=== PATIENT | female | born 1930 | race Caucasian/White ===

== ENCOUNTER 2017-05-30 14:23 | Inpatient (IN) | payer MEDICARE ==
[~2017-05-30] VITALS: Ht 160 cm; Wt 72.9 kg
[~2017-05-30 14:23] MED LIST: ACID1GRA4 PO; ALEN70TA47 PO; APIX5TAB PO; ASPI500T65 PO; FENT-77 TD; HYDR-4064 PO; HYDR-4068 PO; LISI40TA4 PO; LOPE2CAP PO; METH500T PO; METH500T6 PO; OXYGEN NASAL; PRAM0.129 PO; SUCR1TAB2 PO; TAMS0.4C32 PO; ZOLP10TA2 PO; ZOLP10TA6 PO
[2017-05-30 14:30] VITALS: BP 138/76
[2017-05-30] MEDS ORDERED: CEFTRIAXONE SODIUM 1 GM ONE (14:56)
[2017-05-30] MEDS ORDERED: AZITHROMYCIN 500MG+NS 250ML 250 ML IV ONE (14:56)
[2017-05-30] MEDS ORDERED: METHYLPREDNISOLONE SOD SUCC 40MG/ML 1ML ONE ×2 (14:56→15:09)
[2017-05-30] MEDS ORDERED: IPRATROPIUM/ALBUTEROL SULFATE 3 ML SOLUTION IH ONE (14:58)
[2017-05-30 15:19] LABS: BASOPHILS % (AUTO) 0.6 % (0.0-5.0); EOSINOPHILS % (AUTO) 1.6 % (0.0-8.0); HEMATOCRIT 23.7 % (36-48); LYMPHOCYTES % (AUTO) 18.5 % (21.0-51.0); MEAN CORPUSCULAR HEMOGLOBIN 26.5 pg (27.0-33.0); MEAN CORPUSCULAR HGB CONC 31.9 g/dL (32.0-36.0); MEAN CORPUSCULAR VOLUME 82.9 fL (79-99); MONOCYTES % (AUTO) 8.3 % (3.0-13.0); NUCLEATED RED BLOOD CELLS 0.1 % (0.0-0.19); PLATELET COUNT (AUTO) 232 K/uL (130-400); RED BLOOD CELL COUNT(AUTO) 2.86 MIL/uL (4.00-5.50); RED CELL DISTRIBUTION WIDTH 15.7 % (11.0-15.5); WHITE BLOOD COUNT (AUTO) 3.5 K/uL (4.8-10.8)
[2017-05-30] MEDS ORDERED: 1/2 NORMAL SALINE 1,000 ML IV SCH (15:30)
[2017-05-30 15:37] LABS: CREATININE 1.2 mg/dL (0.5-1.5); POTASSIUM 4.2 mmol/L (3.5-5.1)
[2017-05-30 16:30] VITALS: BP 138/76
[2017-05-30] MEDS: ALBUTEROL SULFATE 0.083% 2.5 MG/3 ML INH IH SCH ×2 (18:00→22:00)
[2017-05-30] MEDS: IPRATROPIUM/ALBUTEROL SULFATE 3 ML SOLUTION IH SCH ×2 (19:52→23:46)
[2017-05-30] MEDS: ACETYLCYSTEINE 20% 200MG/ML 4ML VIAL IH SCH ×2 (19:53→23:46)
[2017-05-30 19:56] VITALS: BP 152/77
[2017-05-30] MEDS ORDERED: SODIUM CHLORIDE 0.9% 250 ML IV ONE (23:05)
[2017-05-31] VITALS (9 sets, daily range): BP systolic 110–154; BP diastolic 57–77
[2017-05-31] MEDS: ALBUTEROL SULFATE 0.083% 2.5 MG/3 ML INH IH SCH ×8 (02:00→23:45)
[2017-05-31] MEDS: METHYLPREDNISOLONE SOD SUCC 125MG/2ML VIAL IVP SCH ×2 (02:15→12:47)
[2017-05-31 03:52] LABS: HEMATOCRIT 26.5 % (36-48); MEAN CORPUSCULAR HEMOGLOBIN 26.9 pg (27.0-33.0); MEAN CORPUSCULAR HGB CONC 32.7 g/dL (32.0-36.0); MEAN CORPUSCULAR VOLUME 82.3 fL (79-99); NUCLEATED RED BLOOD CELLS 0.1 % (0.0-0.19); PLATELET COUNT (AUTO) 215 K/uL (130-400); RED BLOOD CELL COUNT(AUTO) 3.22 MIL/uL (4.00-5.50); RED CELL DISTRIBUTION WIDTH 15.9 % (11.0-15.5); WHITE BLOOD COUNT (AUTO) 2.4 K/uL (4.8-10.8)
[2017-05-31 04:08] LABS: CREATININE 1.1 mg/dL (0.5-1.5); POTASSIUM 4.3 mmol/L (3.5-5.1)
[2017-05-31] MEDS: IPRATROPIUM/ALBUTEROL SULFATE 3 ML SOLUTION IH SCH ×4 (06:14→23:44)
[2017-05-31 07:08] LABS: EOSINOPHILS % (MANUAL) 1 % (1-6); LYMPHOCYTES % (MANUAL) 16 % (22-44); MAN.DIFF COMMENT-IMPRESSION MANUAL DIFFERENTIAL; MONOCYTES % (MANUAL) 3 % (2-9); PLATELET MORPHOLOGY COMMENT ADEQUATE; SEGMENTED NEUTROPHILS % 80 % (40-70)
[2017-05-31] MEDS: AZITHROMYCIN 500MG+NS 250ML 250 ML IV SCH (10:22)
[2017-05-31] MEDS: APIXABAN 5 MG TABLET PO SCH ×2 (10:22→21:51)
[2017-05-31] MEDS ORDERED: HYDROCODONE/ACETAMINOPHEN 7.5/325 MG TAB PO PRN (10:45)
[2017-05-31] MEDS ORDERED: LOPERAMIDE HCL 2 MG CAP PO PRN (10:45)
[2017-05-31] MEDS ORDERED: AUD IH (10:57)
[2017-05-31] MEDS ORDERED: LEVO500T89 PO (10:57)
[2017-05-31] MEDS: ACETYLCYSTEINE 20% 200MG/ML 4ML VIAL IH SCH ×3 (11:07→23:44)
[2017-05-31] MEDS ORDERED: ZOLPIDEM TARTRATE 5 MG TAB PO PRN (11:15)
[2017-05-31] MEDS: LACTOBACILLUS RHAMNOSUS GG 1 EACH CAP.SPRINK PO SCH (12:46)
[2017-05-31] MEDS: SUCRALFATE 1 GM TABLET PO SCH ×2 (12:46→17:05)
[2017-05-31] MEDS: CEFTRIAXONE SODIUM 1 GM IVP SCH (14:58)
[2017-05-31] MEDS ORDERED: DOCU-116 PO (15:07)
[2017-05-31] MEDS ORDERED: FENTANYL 50 MCG/HR PATCH TD SCH (16:57)
[2017-05-31] MEDS: DOCUSATE SODIUM 100 MG CAP PO PRN (18:48)
[2017-05-31] MEDS: PRAMIPEXOLE DI-HCL 0.25 MG TABLET PO SCH (21:51)
[2017-06-01] MEDS: METHYLPREDNISOLONE SOD SUCC 125MG/2ML VIAL IVP SCH ×2 (02:29→14:41)
[2017-06-01 03:05] VITALS: BP 142/75
[2017-06-01 04:16] LABS: BASOPHILS % (AUTO) 0.1 % (0.0-5.0); HEMATOCRIT 26.4 % (36-48); LYMPHOCYTES % (AUTO) 12.4 % (21.0-51.0); MEAN CORPUSCULAR HEMOGLOBIN 26.7 pg (27.0-33.0); MEAN CORPUSCULAR HGB CONC 32.3 g/dL (32.0-36.0); MEAN CORPUSCULAR VOLUME 82.6 fL (79-99); MONOCYTES % (AUTO) 5.4 % (3.0-13.0); NEUTROPHILS % (AUTO) 82.1 % (40.0-77.0); PLATELET COUNT (AUTO) 238 K/uL (130-400); RED CELL DISTRIBUTION WIDTH 16.2 % (11.0-15.5); WHITE BLOOD COUNT (AUTO) 3.7 K/uL (4.8-10.8)
[2017-06-01 04:26] LABS: CREATININE 0.9 mg/dL (0.5-1.5); POTASSIUM 4.4 mmol/L (3.5-5.1)
[2017-06-01] MEDS: ALBUTEROL SULFATE 0.083% 2.5 MG/3 ML INH IH SCH ×4 (06:00→22:00)
[2017-06-01] MEDS: IPRATROPIUM/ALBUTEROL SULFATE 3 ML SOLUTION IH SCH ×3 (06:16→18:00)
[2017-06-01] MEDS: ACETYLCYSTEINE 20% 200MG/ML 4ML VIAL IH SCH ×2 (06:17→10:53)
[2017-06-01] MEDS: SUCRALFATE 1 GM TABLET PO SCH ×3 (06:36→17:14)
[2017-06-01 07:00] VITALS: BP 144/76
[2017-06-01] MEDS ORDERED: OXYGEN NASAL SCH (09:00)
[2017-06-01] MEDS ORDERED: METHOCARBAMOL 500 MG PO PRN (09:00)
[2017-06-01] MEDS ORDERED: Alendronate 70 MG TAB PO SCH (09:00)
[2017-06-01] MEDS: LISINOPRIL 40 MG TABLET PO SCH (09:45)
[2017-06-01] MEDS: LACTOBACILLUS RHAMNOSUS GG 1 EACH CAP.SPRINK PO SCH (09:45)
[2017-06-01] MEDS: APIXABAN 5 MG TABLET PO SCH ×2 (09:46→20:39)
[2017-06-01] MEDS: AZITHROMYCIN 500MG+NS 250ML 250 ML IV SCH (09:47)
[2017-06-01] MEDS: DOCUSATE SODIUM 100 MG CAP PO PRN (09:49)
[2017-06-01 11:00] VITALS: BP 139/80
[2017-06-01] MEDS: CEFTRIAXONE SODIUM 1 GM IVP SCH (14:40)
[2017-06-01 15:53] VITALS: BP 127/82
[2017-06-01] MEDS ORDERED: ACETYLCYSTEINE 20% 200MG/ML 4ML VIAL ONE (17:58)
[2017-06-01 19:00] VITALS: BP 144/67
[2017-06-01] MEDS: PRAMIPEXOLE DI-HCL 0.25 MG TABLET PO SCH (20:39)
[2017-06-02] VITALS: BP 129/68
[2017-06-02] MEDS ORDERED: ACETYLCYSTEINE 20% 200MG/ML 4ML VIAL ONE (00:32)
[2017-06-02] MEDS: IPRATROPIUM/ALBUTEROL SULFATE 3 ML SOLUTION IH SCH ×4 (00:36→19:40)
[2017-06-02] MEDS: ALBUTEROL SULFATE 0.083% 2.5 MG/3 ML INH IH SCH ×3 (01:43→18:00)
[2017-06-02] MEDS: METHYLPREDNISOLONE SOD SUCC 125MG/2ML VIAL IVP SCH ×2 (03:35→14:19)
[2017-06-02 04:00] VITALS: BP 140/78
[2017-06-02 08:33] VITALS: BP 138/61
[2017-06-02] MEDS: SUCRALFATE 1 GM TABLET PO SCH ×3 (08:39→18:49)
[2017-06-02] MEDS: APIXABAN 5 MG TABLET PO SCH ×2 (08:41→21:36)
[2017-06-02] MEDS: LISINOPRIL 40 MG TABLET PO SCH (08:41)
[2017-06-02] MEDS: LACTOBACILLUS RHAMNOSUS GG 1 EACH CAP.SPRINK PO SCH (08:41)
[2017-06-02] MEDS: AZITHROMYCIN 500MG+NS 250ML 250 ML IV SCH (08:42)
[2017-06-02 12:00] VITALS: BP 149/72
[2017-06-02] MEDS ORDERED: WATER FOR INJECTION,STERILE 20 ML VIAL ONE (14:15)
[2017-06-02] MEDS: CEFTRIAXONE SODIUM 1 GM IVP SCH (14:20)
[2017-06-02 16:00] VITALS: BP 146/75
[2017-06-02 19:05] VITALS: BP 153/84
[2017-06-02] MEDS: PRAMIPEXOLE DI-HCL 0.25 MG TABLET PO SCH (21:36)
[2017-06-03] MEDS: ALBUTEROL SULFATE 0.083% 2.5 MG/3 ML INH IH SCH
[2017-06-03] MEDS: IPRATROPIUM/ALBUTEROL SULFATE 3 ML SOLUTION IH SCH ×2 (00:22→06:38)
[2017-06-03] MEDS: METHYLPREDNISOLONE SOD SUCC 125MG/2ML VIAL IVP SCH (02:58)
[2017-06-03 03:05] VITALS: BP 136/77
[2017-06-03 05:03] LABS: HEMATOCRIT 25.3 % (36-48); MEAN CORPUSCULAR HEMOGLOBIN 28.4 pg (27.0-33.0); MEAN CORPUSCULAR HGB CONC 34.5 g/dL (32.0-36.0); MEAN CORPUSCULAR VOLUME 82.5 fL (79-99); PLATELET COUNT (AUTO) 252 K/uL (130-400); RED BLOOD CELL COUNT(AUTO) 3.06 MIL/uL (4.00-5.50); RED CELL DISTRIBUTION WIDTH 16.2 % (11.0-15.5); WHITE BLOOD COUNT (AUTO) 5.2 K/uL (4.8-10.8)
[2017-06-03 05:09] LABS: CREATININE 1.1 mg/dL (0.5-1.5); POTASSIUM 3.9 mmol/L (3.5-5.1)
[2017-06-03 07:21] VITALS: BP 145/72
[2017-06-03] MEDS: LISINOPRIL 40 MG TABLET PO SCH (09:37)
[2017-06-03] MEDS: SUCRALFATE 1 GM TABLET PO SCH ×2 (09:37→12:41)
[2017-06-03] MEDS: LACTOBACILLUS RHAMNOSUS GG 1 EACH CAP.SPRINK PO SCH (09:37)
[2017-06-03] MEDS: APIXABAN 5 MG TABLET PO SCH (09:37)
[2017-06-03] MEDS: AZITHROMYCIN 500MG+NS 250ML 250 ML IV SCH (09:38)
[2017-06-03 10:46] VITALS: BP 153/78
== END 2017-06-03 13:40 | disposition home or self-care (01) | DRG 193 ==
LOC: EDH 14:23 → EDHIP 16:18 → 3BH 16:55
PROVIDERS: ADMIT Internal Medicine; ATTEND Internal Medicine
PROC: 30233N1 Transfusion of Nonautologous Red Blood Cells into Peripheral Vein, Percutaneous Approach (ICD-10-PCS; principal; 2017-05-30)
DX: J10.1 Influenza due to other identified influenza virus with other respiratory manifestations (principal); J96.20 Acute and chronic respiratory failure, unspecified whether with hypoxia or hypercapnia; I48.91 Unspecified atrial fibrillation; J44.1 Chronic obstructive pulmonary disease with (acute) exacerbation; D64.9 Anemia, unspecified; M79.606 Pain in leg, unspecified; F32.9 Major depressive disorder, single episode, unspecified; E78.5 Hyperlipidemia, unspecified; I12.9 Hypertensive chronic kidney disease with stage 1 through stage 4 chronic kidney disease, or unspecified chronic kidney disease; M81.0 Age-related osteoporosis without current pathological fracture; N18.9 Chronic kidney disease, unspecified; Z88.0 Allergy status to penicillin; Z88.8 Allergy status to other drugs, medicaments and biological substances; Z79.01 Long term (current) use of anticoagulants
CPT/HCPCS: 36415; 36430; 71045; 80048; 85007; 85025; 85027; 86850; 86900; 86901; 86922; 87071; 87205; 94640; 94664; A4218; J0456; J0696; J2920; J2930; J7030; J7608; P9016

== ENCOUNTER 2017-06-27 09:41 | Day surgery (SDC) | payer MEDICARE ==
[~2017-06-27] VITALS: Ht 152.4 cm; Wt 70.4 kg
[~2017-06-27 09:41] MED LIST changes: +AUD IH; +DOCU-116 PO; -HYDR-4068 PO; +LEVO500T89 PO; -METH500T6 PO; +SODIUM CHLORIDE 0.9% 1000ML 1,000 ML IV ONE; -TAMS0.4C32 PO; -ZOLP10TA6 PO
[2017-06-27 10:19] LABS: BASOPHILS % (AUTO) 0.6 % (0.0-5.0); EOSINOPHILS % (AUTO) 0.9 % (0.0-8.0); HEMATOCRIT 28.6 % (36-48); MEAN CORPUSCULAR HEMOGLOBIN 27.7 pg (27.0-33.0); MEAN CORPUSCULAR VOLUME 81.3 fL (79-99); MONOCYTES % (AUTO) 9.1 % (3.0-13.0); NEUTROPHILS % (AUTO) 70.4 % (40.0-77.0); PLATELET COUNT (AUTO) 222 K/uL (130-400); RED BLOOD CELL COUNT(AUTO) 3.52 MIL/uL (4.00-5.50); RED CELL DISTRIBUTION WIDTH 17.9 % (11.0-15.5); WHITE BLOOD COUNT (AUTO) 4.4 K/uL (4.8-10.8)
[2017-06-27 10:27] LABS: CREATININE 1.3 mg/dL (0.5-1.5); POTASSIUM 4.5 mmol/L (3.5-5.1)
[2017-06-27 10:33] VITALS: BP 140/72
[2017-06-27 10:33] LABS: ALBUMIN 3.7 g/dL (3.5-5.0); BILIRUBIN,TOTAL 0.5 mg/dL (0.2-1.0); TOTAL PROTEIN, SERUM 6.5 g/dL (6.0-8.3)
[2017-06-27] MEDS ORDERED: ROPI1TAB11 PO (11:13)
[2017-06-27] MEDS ORDERED: FENTANYL CITRATE PF 50 MCG/1 ML 2ML VIAL ONE (11:28)
[2017-06-27 12:08] VITALS: BP 91/41
== END 2017-06-27 12:40 | disposition home or self-care (01) ==
LOC: DAH 09:41 → ENDO 09:41
PROVIDERS: ATTEND Internal Medicine Gastroenterology
DX: K52.9 Noninfective gastroenteritis and colitis, unspecified (principal); K57.30 Diverticulosis of large intestine without perforation or abscess without bleeding; K26.9 Duodenal ulcer, unspecified as acute or chronic, without hemorrhage or perforation; K31.89 Other diseases of stomach and duodenum; D50.0 Iron deficiency anemia secondary to blood loss (chronic); Z85.038 Personal history of other malignant neoplasm of large intestine; Z86.010 Personal history of colon polyps; M19.90 Unspecified osteoarthritis, unspecified site; Z98.890 Other specified postprocedural states; Z79.899 Other long term (current) drug therapy
CPT/HCPCS: 36415; 43235; 45380; 80053; 85025; 88305; 88313; 93005; A4606; J7030; J3010